=== PATIENT | female | born 1970 | race Asian ===

== ENCOUNTER 2021-01-07 19:29 | Emergency (ER) | payer OTHER ==
[~2021-01-07] VITALS: Ht 154.9 cm; Wt 98.9 kg
[2021-01-07 19:40] VITALS: BP 164/86; TEMP 97.8
[2021-01-07 20:27] LABS: PLATELET COUNT 325 K/uL (152-353)
[2021-01-07 20:40] LABS: POTASSIUM 3.4 mmol/L (3.6-5.2); SODIUM 138 mmol/L (136-145)
[2021-01-07] MEDS ORDERED: TYLENOL325 MG PO (22:14)
[2021-01-07] MEDS ORDERED: AMLODIPINE BESYLATE PO (22:16)
[2021-01-07] MEDS ORDERED: ASPIR-8181 MG PO (22:19)
[2021-01-07] MEDS ORDERED: LIPITOR80 MG PO (22:21)
[2021-01-07] MEDS ORDERED: CLON0.1T16 PO (22:22)
[2021-01-07] MEDS ORDERED: CLOPIDOGREL75 MG PO (22:24)
[2021-01-07] MEDS ORDERED: CORRECTOL100 MG PO (22:26)
[2021-01-07] MEDS ORDERED: FLORANE1 PO (22:27)
[2021-01-07] MEDS ORDERED: LEVEMIR FL100 UNIT/M SC ×2 (22:30→22:33)
[2021-01-07] MEDS ORDERED: LISI10TA11 PO (22:35)
[2021-01-07] MEDS ORDERED: MILK OF MA400 MG/5 M PO (22:43)
[2021-01-07] MEDS ORDERED: PERIDEX0.12 % PO (22:45)
[2021-01-07] MEDS ORDERED: GAS RELIEF80 MG PO (22:46)
[2021-01-07] MEDS ORDERED: METAMUCIL PO (22:50)
[2021-01-14] MEDS ORDERED: OLANZAPINE10 MG PO (08:07)
== END 2021-01-07 20:50 | disposition other institution (70) ==
LOC: ED 19:29
PROVIDERS: Family Medicine
DX: R46.89 Other symptoms and signs involving appearance and behavior (principal); F41.8 Other specified anxiety disorders; I10 Essential (primary) hypertension; Z11.52 Encounter for screening for COVID-19; Z04.6 Encounter for general psychiatric examination, requested by authority
CPT/HCPCS: 36415; 80053; 82550; 84484; 85027; 87635; 93005; 99283; 99285; U0003